=== PATIENT | male | born 1995 | race African-American/Black ===

== ENCOUNTER 2019-03-10 13:20 | Emergency (ER) | payer SELFPAY ==
[2019-03-10] MEDS ORDERED: KETOROLAC TROMETHAMINE 30 MG/1ML VIAL IV ONE (13:34)
[2019-03-10] MEDS ORDERED: 0.9 % SODIUM CHLORIDE 1,000 ML IV ONE (13:34)
[2019-03-10 13:44] LABS: BASOPHILS % 0.3 % (0.0-1.5); NEUTROPHILS # 4.4 # k/uL (1.4-7.7)
[2019-03-10 13:57] LABS: eGFR (Non-African) 46
--- NOTE | 2019-03-10 14:34 | ED Physician Documentation ---
General Adult - HISTORIAN Historian: patient - HPI Stated Complaint: leg and abdominal cramping Chief Complaint: General Adult Onset: hours (1) Timing: better Severity: mild Further Comments: yes (he was at [facility] football practice and started have leg cramps which moved into his chest and arms. He did try a gatorade with no relief. He has no past medical history . He has mild decrease in cramps.) - ROS CONST: no problems - PAST HX Past History: none Allergies/Adverse Reactions: Allergies Allergy/AdvReac Type Severity Reaction Status Date / Time No Known Allergies Allergy Verified 03/10/19 13:32 Home Medications: Ambulatory Orders Medication Instructions Recorded NK 03/10/19 - SOCIAL HX Smoking History: non-smoker Alcohol Use: none Drug Use: none - FAMILY HX Family History: No - VITAL SIGNS Vital Signs: Vital Signs Temp Pulse Resp BP Pulse Ox 97.8 F 78 13 138/78 99 03/10/19 13:20 03/10/19 13:20 03/10/19 13:20 03/10/19 13:20 03/10/19 13:20 - REVIEWED ASSESSMENTS Nursing Assessment Reviewed: Yes Vitals Reviewed: Yes Progress - Progress Progress: 1415: states he is feeling better cramping has significantly decreased DG 1430: resting quietly in room states he feels fine now DG 1435: Discussed results and plan he is agreeable DG ED Results Lab/Radiology - Lab Results Lab Results: Lab Results 03/10/19 03/10/19 13:34 13:33 WBC 5.70 K/ul K/ul (4.00-12.00) RBC 4.90 M/ul M/ul (3.90-5.20) Hgb 13.6 g/dL g/dL (12.0-18.0) Hct 40.9 % % (37.0-53.0) MCV 83.0 fl fl (80.0-100.0) MCH 27.8 pg L pg (28.0-34.0) MCHC 33.4 g/dL g/dL (30.0-36.0) RDW 13.6 % % (11.3-14.3) Plt Count 223 K/mm3 K/mm3 (130-400) Neut % (Auto) 76.3 % % (39.0-79.0) Lymph % (Auto) 16.9 % % (16.0-50.0) [place] % (Auto) 5.7 % % (0.0-11.0) Eos % (Auto) 0.8 % % (0.0-6.8) Baso % (Auto) 0.3 % % (0.0-1.5) Neut # (Auto) 4.4 # k/uL # k/uL (1.4-7.7) Lymph # (Auto) 1.0 # k/uL # k/uL (0.6-4.0) [place] # (Auto) 0.3 # k/uL # k/uL (0.0-0.9) Eos # (Auto) 0.1 # k/uL # k/uL (0.0-0.6) Baso # (Auto) 0.0 # k/uL # k/uL (0.0-0.5) Sodium 140 mmol/L mmol/L (137-145) Potassium 3.8 mmol/L mmol/L (3.5-5.1) Chloride 100 mmol/L mmol/L (98-107) Carbon Dioxide 25 mmol/L mmol/L (22-30) Anion Gap 18.8 BUN 19 mg/dL mg/dL (9-20) Creatinine 1.91 mg/dL H mg/dL (0.66-1.25) Est GFR ( Amer) 55 L (60 - ) Est GFR (Non-Af Amer) 46 L (60 - ) Glucose 158 mg/dL H mg/dL (74-106) Calcium 9.4 mg/dL mg/dL (8.4-10.2) Total Bilirubin 0.8 mg/dL mg/dL (0.2-1.3) AST 75 U/L H U/L (15-46) ALT 19 U/L U/L (13-69) Alkaline Phosphatase 58 U/L U/L (38-126) Total Protein 8.4 g/dL H g/dL (6.3-8.2) Albumin 5.0 g/dL g/dL (3.5-5.0) - Orders Orders: ED Orders Category Date Time Status Continuous EKG monitoring Q1H Care 03/10/19 13:34 Active IV Started NOW Care 03/10/19 13:34 Active CBC/PLATELET/DIFF Stat Lab 03/10/19 13:33 Completed CMP Stat Lab 03/10/19 13:34 Completed UA W/MICRO IF INDICATED Routine Lab 03/10/19 13:35 Ordered 0.9 % Sodium Chloride [Normal Saline] 1,000 ml Med 03/10/19 13:34 Discontinued IV NOW Chem Sticks Med 03/10/19 15:00 Ordered 1 each MC CHEMQ Ketorolac Tromethamine [Toradol] Med 03/10/19 13:34 Discontinued 30 mg IV NOW ONE EKG WITH COMPARISON Stat Ther 03/10/19 Ordered General Adult Physical Exam - PHYSICAL EXAM GENERAL APPEARANCE: no distress EENT: eye inspection normal, pharynx normal, no signs of dehydration NECK: normal inspection RESPIRATORY: no resp distress, chest non-tender, breath sounds normal CVS: reg rate & rhythm, heart sounds normal ABDOMEN: soft, no distension BACK: normal inspection SKIN: warm/dry EXTREMITIES: non-tender, normal range of motion, no evidence of injury NEURO: oriented X3 Discharge Clincal Impression: Dehydration after exertion Referrals: Primary Doctor,No [Primary Care Provider] - 2 Days Comments: 1. Rest today 2. Increase fluids 3. Follow up with PCP in 2 days 4. Return to ER for any concerns Condition: Stable Disposition: 01 HOME, SELF-CARE Decision to Admit: NO Date of Decison to Admit: 03/10/19 Decision Time: 14:37
[2019-03-10 16:12] VITALS: BP 117/66
== END 2019-03-10 14:40 | disposition home or self-care (01) ==
LOC: ED 13:20
DX: E86.0 Dehydration (principal); R25.2 Cramp and spasm
CPT/HCPCS: 80053; 85025; 96361; 96374; 99282; 99283; J1885; J7030